=== PATIENT | female | born 1990 | race African-American/Black ===

== ENCOUNTER → 2021-03-29 | Outpatient (CLI) | payer OTHER ==
--- NOTE | 2021-03-29 15:32 | RAD ---
Study: XR THORACOLUMBAR Indication: Back pain. Comparison: None. Findings: 5 nonrib-bearing lumbar vertebral elements. Slight straightening of lumbar lordosis. Maintained verte bral body height. No listhesis. No advanced discogenic arthrosis or facet degeneration. Unremarkable sacroiliac joints. Intrauterine contraceptive device. Impression: No acute radiographic abnormality of the lumbar or lower thoracic spine. No significant spondylosis. Electronically signed by: BELLO BOYER MD (03/29/2021 3:29 PM) [facility]
== END ==
LOC: RAD 14:08
PROVIDERS: ATTEND Nurse Practitioner Family
DX: M54.6 Pain in thoracic spine (principal)
CPT/HCPCS: 72080